=== PATIENT | male | born 1955 | race Caucasian/White ===

== ENCOUNTER 2019-10-07 13:15 | Emergency (ER) | payer MEDICARE ==
[2019-10-07] MEDS ORDERED: Zemuron 100 MG/10 ML IV ONE (13:16)
[2019-10-07] MEDS ORDERED: Quelicin Fliptop 200 MG/10 ML IV ONE (13:16)
[2019-10-07] MEDS ORDERED: APRESOLINE 20 MG/ML INJ IV ONE (13:16)
[2019-10-07 13:22] LABS: Absolute Neutrophil Ct (ANC) 6.35 (1.4-6.9); BASOPHIL % 0.2 % (0.0-0.4); Basophil (Absolute #) 0.02 (0-0.4); Hemoglobin 14.1 gm/dl (12.5-18.0); Lymphocyte (Absolute #) 2.54 (1.0-4.6); Mean Cell Volume 94.4 fl (78-100); Mean Corpuscular Hemoglobin 31.7 pg (26-32); Mean Corpuscular Hgb Concent. 33.6 g/dl (32-36); Monocyte (Absolute #) 0.65 (0.0-1.3); Monocytes % 6.7 % (0.0-12.0); Neutrophil % 65.1 % (36.0-66.0); Platelet Count 219 K/mm3 (150-450); Red Blood Count 4.45 M/mm3 (4.1-5.6); Red Cell Distribution Width 12.5 % (11.5-14.0); White Blood Count 9.8 K/mm3 (4.0-10.5)
[2019-10-07 13:28] LABS: INR 1.12 (0.8-3.0); PROTIME 12.7 SECONDS (8.83-12.87)
[2019-10-07 13:35] LABS: ALBUMIN 4.4 g/dL (3.5-5.0); ALKALINE PHOSPHATASE 49 U/L (38-126); ANION GAP 15.9 MEQ/L (5-15); BLOOD UREA NITROGEN 15 mg/dL (9-20); CHLORIDE 111 mmol/L (98-107); Calcium 9.1 mg/dL (8.4-10.2); Carbon Dioxide 21 mmol/L (22-30); Creatinine 1 0.88 mg/dL (0.66-1.25); Glucose 142 mg/dL (74-106); Potassium 3.2 mmol/L (3.5-5.1); SGOT/AST 39 U/L (17-59); SGPT/ALT 46 U/L (0-50); SODIUM 145 mmol/L (137-145); Total Protein 7.1 g/dL (6.3-8.2)
[2019-10-07] MEDS ORDERED: Sodium Chloride 0.9% 1000 ML 2,000 ML ONE (13:38)
[2019-10-07 13:56] LABS: VBG CARBOXYHEMOGLOBIN 1.1 % T HGB (0.0-6.9); VBG HCO3- 22.7 meq/L (22-28); VBG POTASSIUM 3.2 (3.5-5.1); VBG pH 7.34 (7.32-7.42)
--- NOTE | 2019-10-07 14:01 | ERPHSYRPT ---
- History of Present Illness Time Seen by Provider: 10/07/19 13:20 Source: EMS Exam Limitations: clinical condition Physician History: Jelani is a 64-year-old male who fell approximately 15 feet from the top of a large band type truck landing on his head. G CS was 9 per EMS at the scene he was given 5 mg of Versed in route to the ER and responded well to that with less combativeness and thrashing around. Arrival in the ER attempts were made to intubate multiple times and were unsuccessful finally cricothyroidotomy was performed. Family arrived in the ER were told his condition to the best of our knowledge and he was transferred to [facility]. Method of Injury: fall Occurred: just prior to arrival Where Injury Occurred: home Loss of Consciousness: prolonged (minutes), still comatose Modifying Factors: Improves With: nothing Associated Symptoms: denies symptoms Allergies/Adverse Reactions: No Known Drug Allergies Allergy (Unverified 01/18/13 14:27) Home Medications: Omeprazole/Sodium Bicarbonate [Omeprazole-Bicarb 20-1,100 Cap] 1 each PO DAILY 01/19/13 [History] - Review of Systems All Other Systems: Unable due to condition - Past Medical History Pertinent Past Medical History: Yes Neurological History: No Pertinent History ENT History: No Pertinent History Cardiac History: No Pertinent History Respiratory History: No Pertinent History Endocrine Medical History: No Pertinent History Musculoskeletal History: No Pertinent History GI Medical History: GERD History: No Pertinent History Psycho-Social History: No Pertinent History Male Reproductive Disorders: No Pertinent History - Past Surgical History Past Surgical History: Yes Neuro Surgical History: No Pertinent History Cardiac: No Pertinent History Respiratory: No Pertinent History Gastrointestinal: No Pertinent History Genitourinary: No Pertinent History Musculoskeletal: Other Male Surgical History: No Pertinent History Other Surgical History: Plate inserted in right foot after fall - Social History Smoking Status: Former smoker Exposure to second hand smoke: No Drug Use: none Physical Exam - Viola Coma Score Best Eye Response (Viola): (1) no response Best Verbal Response (Clari): (1) no verbal response Best Motor Response (Viola): (4) withdraws to pain Viola Total: 6 - Physical Exam General Appearance: other (Unresponsive male) Head Injury: active bleeding (Acute bleeding from the nose pupils fixed and mid position) Eye Exam: bilateral eye: PERRL (To mid position) ENT Exam: oral injury, other (Flowing nasal blood) Neck Exam: c-collar in place Respiratory/Chest Exam: normal breath sounds Cardiovascular Exam: normal heart sounds Gastrointestinal Exam: soft Genitalia Exam: normal genital exam Back Exam: normal inspection Extremity Exam: normal inspection Peripheral Pulses: carotid (R): 2+, carotid (L): 2+ Neurologic Exam: agitation, abnormal workforce development specialist II-XII Skin Exam: normal color, warm, dry O2 Delivery: Trach Collar (Patient was stabilized with an airway cricothyroidotomy) Procedures - Intubation Intubation Indications: airway protection Tube Size (cm): Thyroidectomy Medications: Midazolam (Versed), Succinylcholine, Rocuronium C-Spine: immobilized, maintained Endotracheal Tube Confirmation: bilateral breath sounds, positive end tidal CO2 , good rise & fall of chest, stable or inc of O2 sat Intubation Complications: oral-unsuccessful attempt (Oral tracheal intubation was unsuccessful cricothyroidotomy done) Performed By: ED Physician (The physician performed a cricothyroidotomy) Post Intubation Xray: Yes - Course Nursing assessment & vital signs reviewed: Yes Ordered Tests: Active Orders 24 hr Category Date Time Status CHEST 1 VIEW (PORTABLE) Stat Exams 10/07/19 13:13 Ordered CBC W DIFF Stat Lab 10/07/19 13:00 Completed CMP Stat Lab 10/07/19 13:00 Completed PROTIME WITH INR Stat Lab 10/07/19 13:00 Completed PTT Stat Lab 10/07/19 13:00 Completed Medication Summary Discontinued Medications Generic Name Dose Route Start Last Admin Trade Name Freq PRN Reason Stop Dose Admin Sodium Chloride Confirm 10/07/19 13:38 Sodium Chloride 0.9% 1000 Ml Administered 10/07/19 13:39 Dose 2,000 mls @ .ROUTE .[facility] Lab/Rad Data: Laboratory Result Diagrams 10/07/19 13:00 10/07/19 13:00 Laboratory Results 10/07/19 10/07/19 10/07/19 Range/Units 13:00 13:00 13:00 WBC 9.8 (4.0-10.5) K/mm3 RBC 4.45 (4.1-5.6) M/mm3 Hgb 14.1 (12.5-18.0) gm/dl Hct 42.0 (42-50) % MCV 94.4 (78-100) fl MCH 31.7 (26-32) pg MCHC 33.6 (32-36) g/dl RDW 12.5 (11.5-14.0) % Plt Count 219 (150-450) K/mm3 MPV 9.0 (7.5-11.0) fl Gran % 65.1 (36.0-66.0) % Eos # (Auto) 0.20 (0-0.5) Absolute Lymphs (auto) 2.54 (1.0-4.6) Absolute Monos (auto) 0.65 (0.0-1.3) Lymphocytes % 26.0 (24.0-44.0) % Monocytes % 6.7 (0.0-12.0) % Eosinophils % 2.0 (0.00-5.0) % Basophils % 0.2 (0.0-0.4) % Absolute Granulocytes 6.35 (1.4-6.9) Basophils # 0.02 (0-0.4) PT 12.7 (8.83-12.87) SECONDS INR 1.12 (0.8-3.0) APTT 29.0 (24.1-36.1) SECONDS Sodium 145 (137-145) mmol/L Potassium 3.2 L (3.5-5.1) mmol/L Chloride 111 H (98-107) mmol/L Carbon Dioxide 21 L (22-30) mmol/L Anion Gap 15.9 H (5-15) MEQ/L BUN 15 (9-20) mg/dL Creatinine 0.88 (0.66-1.25) mg/dL Estimated GFR > 60.0 ML/MIN Glucose 142 H (74-106) mg/dL Calcium 9.1 (8.4-10.2) mg/dL Total Bilirubin 0.80 (0.2-1.3) mg/dL AST 39 (17-59) U/L ALT 46 (0-50) U/L Alkaline Phosphatase 49 (38-126) U/L Serum Total Protein 7.1 (6.3-8.2) g/dL Albumin 4.4 (3.5-5.0) g/dL - Progress Progress: improved - Departure Departure Disposition: Transfer (She was transferred to [facility] trauma [facility]) Clinical Impression: Head injury Condition: Critical Critical Care Time: Yes Critical Care Time(excluding separately billable procedures): Critical 30-74 mins Referrals: MAIN,CHARLES F [Primary Care Provider] -
--- NOTE | 2019-10-07 14:10 | XRAY ---
Indication: Tracheostomy tube and NG tube placement. Comparison: November 02, 2018. 4 portable chest radiographs obtained on backboard demonstrates new tracheostomy tube tip 3 cm above the yelena and NG tube coiled in the mouth. Lungs underinflated with diffuse left lung and right upper lung interstitial alveolar opacities. No pneumothorax. Heart is not enlarged. Bony thorax intact.
[2019-10-07 15:42] VITALS: BP 130/89; PULSE 121; O2SAT 92
== END 2019-10-07 14:20 | disposition short-term general hospital (02) ==
LOC: ED 13:15
DX: S00.93XA Contusion of unspecified part of head, initial encounter (principal); W17.89XA Other fall from one level to another, initial encounter
CPT/HCPCS: 31500; 36415; 71045; 80053; 82805; 85025; 85610; 85730; 94799; 99284; 99291; J0330; J0360